=== PATIENT | male | born 1970 | race Caucasian/White ===

== ENCOUNTER 2018-11-14 12:27 | Inpatient (IN) | payer OTHER ==
[~2018-11-14] VITALS: Ht 175.3 cm; Wt 70.5 kg
--- NOTE | ~2018-11-14 | WRIGHTHP ---
[place], [place] PATIENT HISTORY AND PHYSICAL EXAM NAME: SHARONDA JOHN [facility] #: [id number] UNIT #: [id number] ROOM: 424 DOCTOR: EVA LUCIANO MD BIRTHDATE: [birth year] DOS: 11/14/2018 CHIEF COMPLAINT: Massive rectal bleeding. HISTORY OF PRESENTING ILLNESS: A 48-year-old patient, who is having massive rectal bleeding now 4-5 times a week. It was happening once every month for a year and now it has become more frequent. The patient had hernia repair 4-5 years ago. Now, he is feeling a gargling sound in his stomach and intestine area. Now with the first bowel movement of the day, he is having darker stools and has darker blood in his stools. He said that by the second time he would go, it is gone, but there are times where he just does not feel right. The patient denied any chest pain or shortness of breath. No nausea or vomiting or diarrhea. His baseline heart rate is 70-80, but today it was 102 per minute. His blood pressure was 120/72. The patient at this time was admitted to the hospital. CT scan of the abdomen and pelvis was ordered with contrast. Dr. Padilla was consulted. CMP, CBC with diff was ordered. PAST MEDICAL HISTORY: Significant for: 1. Diabetes. 2. Hypertension. PAST SURGICAL HISTORY: 1. Appendix removed 27 years ago. 2. Hernia surgery in 11/2015. FAMILY HISTORY: Father . Mother is living. One sister and one son. MEDICATIONS: He is not on any home medication at this point. SOCIAL HISTORY: The patient does smoke. He smokes about a pack and a half a day. He stopped smoking within 5 minutes. He smokes cigarette every day. No illicit drug use, no alcohol use. DRUG ALLERGIES: No known drug allergies. REVIEW OF SYSTEMS: A 10-point review of systems is negative, except for a GI bleed and as dictated in the history of present illness. The patient does feel tired. PHYSICAL EXAMINATION: VITAL SIGNS: Blood pressure is 120/72, heart rate 102, temperature 98.9, BMI 24.48, oxygen saturation 96%. GENERAL APPEARANCE: The patient is in no acute distress. He is well developed, well nourished. HEENT: Normocephalic, atraumatic. Eyes: Pupils equal, round, react to light. Extraocular movements are intact. Ear, nose, and throat: No discharge noted. NECK: No JVD, no lymphadenopathy, no thyromegaly. [place], [place] PATIENT HISTORY AND PHYSICAL EXAM NAME: SHARONDA JOHN UNIT #: [id number] ROOM: 424 DOCTOR: EVA LUCIANO MD BIRTHDATE: [birth year] CHEST: Clinically clear to auscultation bilaterally. HEART: S1, S2 regular in rate and no murmur, gallop or rub. ABDOMEN: Soft, nontender. The patient does have a lump in the left anterior chest, which has been there for the last 8 years and has shown no growth. Abdomen is soft, nontender. EXTREMITIES: No cyanosis, clubbing or edema. NEUROLOGIC: No focal deficit. Muscle strength 5/5 in all extremities. Sensory exam is intact. ASSESSMENT: At this time: 1. Tachycardia. 2. Rectal bleeding. 3. Tobacco abuse. 4. Extensive tattoos. 5. Lump in the chest (present for the last 8 years, was evaluated in the past and no surgical intervention was advised). 6. Status post appendectomy. TREATMENT RECOMMENDATIONS: At this time: 1. The patient admitted to the hospital. Dr. Padilla consulted. CT scan of the abdomen and pelvis. 2. CMP, CBC with diff. 3. EKG was done. 4. The patient also has chest pain at rest and chest pain on exertion. It may be related to his current condition, but if it persists, then the patient will cycle cardiac enzymes and the patient may be a candidate for stress test. We will follow the patient closely. EVA LUCIANO MD CM:HISPHYS:PATIENT HISTORY AND PHYSICAL EXAMINATION [id number] EVA LUCIANO MD 11/15/18 1016 interface
[~2018-11-14 12:27] MED LIST: ASPIR LOW81 MG PO; CYCLOBENZAPRINE10 MG PO; HYDROCODONE BIT1 T11 PO; LIPITOR10 MG PO; MIRALAX POWDER17 G1 PO; NORCO 10-325 T1 EACH PO; NORCO 5-325 TA1 EACH PO
[2018-11-14 12:45] VITALS: BP 119/80
--- NOTE | 2018-11-14 12:45 | NUR ---
A 48, admitted to , under the services of EVA Ruiz MD with a diagnosis of RECTAL BLEEDING. Chief complaint is RECTAL BLEEDING. Patient arrived via wheel chair from [place]. Monitor applied. Initial assessment completed. Vital signs taken and recorded. EVA RUIZ MD notified of admission to the unit. Orders received. See assessment for past medical history, medications and allergies. Patient and/or family oriented to unit. [facility] visitation policy reviewed. Clothing/patient valuable form completed. VACNE VILLEGAS
--- NOTE | 2018-11-14 13:25 | NUR ---
DR LUCIANO CALLED FOR ADMISSION ORDERS, NO ANSWER AT THIS TIME. MESSAGE LEFT.
--- NOTE | 2018-11-14 14:28 | NUR ---
DR LUCIANO CALLED- NO ANSWER.
--- NOTE | 2018-11-14 15:20 | NUR ---
DR MAGAÑA CALLED FOR NEW CONSULT- NO ANSWER.
[2018-11-14 15:54] LABS: BASO # 0.1 10*3/uL (0.0-0.1); BASO % 0.6 % (0.0-1.0); EOS # 0.1 10*3/uL (0.0-0.4); EOS % 0.8 % (1.0-4.0); HEMATOCRIT 46.1 % (42.0-52.0); HEMOGLOBIN 15.5 g/dl (14.0-18.0); LYMPH % 34.3 % (27.0-41.0); MEAN CELL VOLUME 91.3 fl (80.0-94.0); MEAN CORPUSCULAR HGB 30.7 pg (27.0-31.0); MEAN CORPUSCULAR HGB CONC 33.6 g/dl (33.0-37.0); MEAN PLATELET VOLUME 9.2 fl (9.6-12.3); MONO # 0.6 10*3/uL (0.1-1.0); MONO % 7.3 % (3.0-9.0); NEUT % 56.8 % (47.0-73.0); PLATELET COUNT AUTOMATED 223 10*3/uL (130-400); RED BLOOD COUNT 5.05 10*6/uL (4.50-5.90); RED CELL DISTRI WIDTH 12.7 % (0-14.5); WHITE BLOOD COUNT 8.8 10*3/uL (4.8-10.8)
[2018-11-14 16:00] VITALS: BP 123/73
[2018-11-14 16:28] LABS: BUN 12 mg/dl (7-24); CHLORIDE 106 mmol/L (98-107); SODIUM 139 mmol/L (136-145)
--- NOTE | 2018-11-14 16:47 | NUR ---
DR MAGAÑA CALLED WITH NEW CONSULT. NEW ORDERS RECEIVED TO PREP PATIENT FOR COLO IN AM.
[2018-11-14 20:00] VITALS: BP 128/90
--- NOTE | 2018-11-14 20:40 | NUR ---
PATIENT REQUESTING NICOTINE PATCH- DR GUERRA CALLED- NEW ORDER RECEIVED.
--- NOTE | 2018-11-14 23:30 | NUR ---
REPORT RECIEVED FROM СВЕТЛАНА WOODARD. PT IS ASLEEP IN BED AT THIS TIME WITH NO OBVIOUS SIGNS OF PAIN OR DISCOMFORT. RESPIRATIONS EASY AND NONLABORED. NSR ON TOLL COLLECTOR. PT AWARE HE IS NPO AT MIDNIGHT FOR COLONOSCOPY IN THE MORNING WITH . BED LOCKED AND IN LOWEST POSITION. CALL LIGHT IS WITHIN REACH. WILL CONTINUE TO MONITOR.
[2018-11-15] VITALS: BP 116/84
[2018-11-15 07:12] LABS: BASO # 0.1 10*3/uL (0.0-0.1); BASO % 0.9 % (0.0-1.0); EOS # 0.1 10*3/uL (0.0-0.4); EOS % 1.3 % (1.0-4.0); HEMATOCRIT 49.6 % (42.0-52.0); LYMPH # 2.7 10*3/uL (1.3-4.4); LYMPH % 31.4 % (27.0-41.0); MEAN CELL VOLUME 90.8 fl (80.0-94.0); MEAN CORPUSCULAR HGB 31.1 pg (27.0-31.0); MEAN CORPUSCULAR HGB CONC 34.3 g/dl (33.0-37.0); MEAN PLATELET VOLUME 9.2 fl (9.6-12.3); MONO # 0.7 10*3/uL (0.1-1.0); MONO % 8.3 % (3.0-9.0); PLATELET COUNT AUTOMATED 243 10*3/uL (130-400); RED BLOOD COUNT 5.46 10*6/uL (4.50-5.90); RED CELL DISTRI WIDTH 12.8 % (0-14.5); WHITE BLOOD COUNT 8.6 10*3/uL (4.8-10.8)
[2018-11-15 07:28] LABS: BUN 10 mg/dl (7-24); CHLORIDE 108 mmol/L (98-107); CREATININE 0.74 mg/dL (0.70-1.30); SODIUM 137 mmol/L (136-145)
[2018-11-15 08:41] VITALS: BP 110/72
--- NOTE | 2018-11-15 10:29 | NUR ---
PT CALLS THIS NURSE TO ROOM AND STATES THAT IF HE IS NOT TAKEN DOWN TO SURGERY BY 1100, THAT HE WILL LEAVE AMA. SURGERY NOTIFIED AND STATES THAT DR MAGAÑA WILL NOT BE IN UNTIL AT LEAST 1300. DR LUCIANO NOTIFIED AND STATES THAT IF PT LEAVES AMA, TELL PT TO FOLLOW UP WITH HIM OUTPATIENT ON SUNDAY OR SUNDAY IN ORDER TO SCHEDULE AN OUTPATIENT COLONOSCOPY WITH DR MAGAÑA. WILL NOTIFY PT.
--- NOTE | 2018-11-15 10:46 | NUR ---
PT LEAVES AMA AT THIS TIME.
[2019-02-12] MEDS ORDERED: OMEPRAZOLE20 M2 PO (12:53)
== END 2018-11-15 10:45 | disposition left against medical advice (07) | DRG 379 ==
LOC: 4E 12:27
PROVIDERS: ADMIT Internal Medicine
DX: K62.5 Hemorrhage of anus and rectum (principal); R00.0 Tachycardia, unspecified; Z53.21 Procedure and treatment not carried out due to patient leaving prior to being seen by health care provider; E87.8 Other disorders of electrolyte and fluid balance, not elsewhere classified; I10 Essential (primary) hypertension; E11.9 Type 2 diabetes mellitus without complications; F17.200 Nicotine dependence, unspecified, uncomplicated; L81.8 Other specified disorders of pigmentation; Z90.49 Acquired absence of other specified parts of digestive tract

== ENCOUNTER → 2019-02-12 | Day surgery (SDC) | payer OTHER ==
[~2019-02-12] VITALS: Ht 175.2 cm; Wt 72.6 kg
[~2019-02-12] MED LIST changes: +OMEPRAZOLE20 M2 PO
--- NOTE | ~2019-02-12 | O ---
[place], [place] OPERATIVE NOTE NAME: SHARONDA JOHN UNIT #: [id number] ROOM: DOCTOR: KIRILL MAGAÑA MD BIRTHDATE: [birth year] DOS: 02/12/2019 GASTROENDOSCOPIC REPORT INDICATIONS: The patient who has presented with multiple medical issues among which has been blood in the rectum, dyspepsia on Tums medication. ALLERGIES: No known medication. FAMILY HISTORY: Stomach CA in grandfather, grandmother and uncle. PAST SURGICAL HISTORY: Left inguinal hernia, tonsil. SOCIAL HISTORY: Smoker, nonalcohol consumer. PROCEDURE: Today's procedure part of investigation is colonoscopy and panendoscopy. PREMEDICATION: Propofol. SCOPE: Olympus forward-viewing gastroscope Q10 video. REPORT: After putting the patient in left lateral position and application of lubricant to the scope, the scope was introduced. Thereafter, under direct visualization, advanced throughout the length of esophagus without difficulty. Esophagus, cervical, thoracic distal carefully examined. Gastric pouch was entered. Evidence of gastritis was noticed. Antral biopsy was obtained. Duodenal bulb, second and third part within normal limit. The patient extubated after antral biopsy. The patient tolerated the procedure well. IMPRESSION: Gastritis, gastric biopsy, awaiting H. pylori results. PLAN AND DISCUSSION: Dietary modification. We are going to organize omeprazole prescription 1 every day 20 mg and antireflux follow up as outpatient. Further discussion, we are going to proceed with colonoscopy. GASTROENDOSCOPIC REPORT INDICATION: The patient has presented with rectal bleed, undergoing investigation. PROCEDURE: Today's procedure part of investigation is colonoscopy plus 4 snare polypectomy. PREMEDICATION: Propofol. SCOPE: Olympus forward-viewing colonoscope 10L video. REPORT: After putting the patient in left lateral position and application of [place], [place] OPERATIVE NOTE NAME: SHARONDA JOHN UNIT #: [id number] ROOM: DOCTOR: KIRILL MAGAÑA MD BIRTHDATE: [birth year] lubricant to the scope, the scope was introduced, advanced throughout the length of rectum without difficulty to the base of cecum. Three polypoid lesions from splenic flexure with snare was polypectomized. One larger polyp from sigmoid colon was polypectomized. Samples recovered. Diverticulosis was identified. Air was suctioned out. The patient was extubated, tolerated the procedure well. IMPRESSION: Sigmoid colon polyp, status post snare polypectomy along with 3 splenic flexure polypoid lesions status post snare polypectomy, diverticulosis. PLAN: High fiber diet. ACTIVITY: Ad raheem. FOLLOWUP: Followup routinely with you in office. 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 This we will address as outpatient. Thank you very much indeed for your kind referral. KIRILL MAGAÑA MD CM:OPRECORD:OPERATIVE NOTE [id number] EVA MAGAÑA MD 02/12/19 1335 interface
--- NOTE | ~2019-02-12 | POSTOPNOTE ---
[place], [place] POSTOPERATIVE PROGRESS NOTE NAME: SHARONDA JOHN UNIT #: [id number] ROOM: DOCTOR: KIRILL MAGAÑA MD BIRTHDATE: [birth year] DATE: 02/15/19 GI NOTE PREOPERATIVE DIAGNOSIS: BLOOD IN RECTUM, DYSPEPSIA ON TUMS MEDICATION POSTOP UPPER GI PROC/FINDINGS: GASTRITIS, GASTRIC BIOPSY, AWAITING H. PYLORI RESULTS UPPER GI PROCEDURE/SURGERY: EGD WITH BIOPSY UPPER GI FINDINGS: GASTRITIS, GASTRIC BIOPSY, AWAITING H. PYLORI RESULTS POSTOP LOWER GI PROC/FINDINGS: LOWER GI PROCEDURE/SURGERY: COLONOSCOPY WITH SNARE POLYPECTOMY LOWER GI FINDINGS: SIGMOID COLON POLYP, 3 SPLENIC FLEXURE POLYPOID LESIONS, DIVERTICULOSIS KIRILL MAGAÑA MD CM:POSTOPN [id number] KIRILL MAGAÑA MD 02/19/19 1120 [email or web address] [email or web address]
[2019-02-12 11:45] VITALS: BP 119/88
[2019-02-12 12:36] VITALS: BP 103/75
[2019-02-12 12:51] VITALS: BP 107/76
[2019-02-12 13:06] VITALS: BP 115/78
== END | disposition home or self-care (01) ==
LOC: SDC 02-06 10:15
DX: D12.3 Benign neoplasm of transverse colon (principal); D12.5 Benign neoplasm of sigmoid colon; K29.50 Unspecified chronic gastritis without bleeding; K57.30 Diverticulosis of large intestine without perforation or abscess without bleeding; F17.210 Nicotine dependence, cigarettes, uncomplicated; Z79.899 Other long term (current) drug therapy; Z98.890 Other specified postprocedural states; Z80.0 Family history of malignant neoplasm of digestive organs

== ENCOUNTER → 2019-04-03 | Outpatient (CLI) | payer OTHER | END | disposition home or self-care (01) | LOC: MRI 15:00 | DX: M48.061 Spinal stenosis, lumbar region without neurogenic claudication (principal); M51.26 Other intervertebral disc displacement, lumbar region; M51.36 Other intervertebral disc degeneration, lumbar region; M25.78 Osteophyte, vertebrae; M12.88 Other specific arthropathies, not elsewhere classified, other specified site ==

== ENCOUNTER → 2019-05-07 | Outpatient (CLI) | payer OTHER | END | disposition home or self-care (01) | LOC: US 02:43 | DX: N30.00 Acute cystitis without hematuria (principal) ==

== ENCOUNTER → 2020-03-23 | Outpatient (CLI) | payer OTHER | END | disposition home or self-care (01) | LOC: RAD 11:08 | PROVIDERS: ATTEND Internal Medicine | DX: M48.061 Spinal stenosis, lumbar region without neurogenic claudication (principal); M54.16 Radiculopathy, lumbar region ==

== ENCOUNTER 2021-05-06 11:03 | Emergency (ER) | payer OTHER ==
[~2021-05-06] VITALS: Wt 79.4 kg
[2021-05-06 11:30] LABS: BASO # 0.1 10*3/uL (0.0-0.1); BASO % 0.6 % (0.0-1.0); EOS % 0.1 % (1.0-4.0); HEMATOCRIT 47.8 % (42.0-52.0); LYMPH # 2.7 10*3/uL (1.3-4.4); LYMPH % 29.9 % (27.0-41.0); MEAN CELL VOLUME 92.5 fl (80.0-94.0); MEAN CORPUSCULAR HGB 31.3 pg (27.0-31.0); MEAN CORPUSCULAR HGB CONC 33.9 g/dl (33.0-37.0); MEAN PLATELET VOLUME 9.3 fl (9.6-12.3); MONO # 0.4 10*3/uL (0.1-1.0); MONO % 4.1 % (3.0-9.0); NEUT # 5.8 10*3/uL (2.3-7.9); NEUT % 64.7 % (47.0-73.0); PLATELET COUNT AUTOMATED 237 10*3/uL (130-400); RED BLOOD COUNT 5.17 10*6/uL (4.50-5.90); RED CELL DISTRI WIDTH 13.1 % (0-14.5)
[2021-05-06 11:42] LABS: ACT PARTIAL THROMBO TIME 29.2 SECONDS (20.0-32.1); INTERNATIONAL NORM RATIO 0.9 (2.0-3.5)
[2021-05-06 11:48] LABS: ALBUMIN 3.8 gm/dl (3.1-4.5); ALKALINE PHOSPHATASE 114 U/L (45-117); BUN 19 mg/dl (7-24); CHLORIDE 107 mmol/L (98-107); CREATININE 0.79 mg/dL (0.70-1.30); SGOT/AST 28 IU/L (3-35); SGPT/ALT 65 U/L (12-78); SODIUM 136 mmol/L (136-145); TOTAL PROTEIN 7.4 gm/dL (6.4-8.2); TROPONIN I < 0.015 ng/ml (<0.045)
[2021-05-06] MEDS ORDERED: PREDNISONE50 MG PO (13:44)
[2021-05-06] MEDS ORDERED: VENT7GM INH (13:52)
== END 2021-05-06 14:23 | disposition home or self-care (01) ==
LOC: ED 11:03
PROVIDERS: Family Medicine
DX: J40 Bronchitis, not specified as acute or chronic (principal); Z20.822 Contact with and (suspected) exposure to COVID-19; Z79.899 Other long term (current) drug therapy; Z90.49 Acquired absence of other specified parts of digestive tract; Z98.890 Other specified postprocedural states

== ENCOUNTER 2023-10-25 13:02 | Inpatient (IN) | payer OTHER ==
[~2023-10-25] VITALS: Ht 175.2 cm; Wt 93.0 kg
[~2023-10-25 13:02] MED LIST changes: -OMEPRAZOLE20 M2 PO; +OMEPRAZOLE40 MG PO; +PREDNISONE50 MG PO; +VENT7GM INH
[2023-10-25 13:08] VITALS: BP 156/104
[2023-10-25 13:30] LABS: BASO # 0.1 10*3/uL (0.0-0.1); BASO % 0.8 % (0.0-1.0); EOS # 0.1 10*3/uL (0.0-0.4); EOS % 0.9 % (1.0-4.0); HEMATOCRIT 52.8 % (42.0-52.0); LYMPH # 2.4 10*3/uL (1.3-4.4); LYMPH % 27.9 % (27.0-41.0); MEAN CORPUSCULAR HGB 31.2 pg (27.0-31.0); MEAN CORPUSCULAR HGB CONC 33.5 g/dl (33.0-37.0); MEAN PLATELET VOLUME 9.4 fl (9.6-12.3); MONO # 0.4 10*3/uL (0.1-1.0); NEUT # 5.5 10*3/uL (2.3-7.9); PLATELET COUNT AUTOMATED 230 10*3/uL (130-400); RED BLOOD COUNT 5.68 10*6/uL (4.50-5.90); RED CELL DISTRI WIDTH 13.2 % (0-14.5); WHITE BLOOD COUNT 8.5 10*3/uL (4.8-10.8)
[2023-10-25 13:45] LABS: ACT PARTIAL THROMBO TIME 31.3 SECONDS (20.0-32.1)
[2023-10-25] MEDS ORDERED: IOHEXOL 300 MG/ML 100 ML VIAL IV ONE (13:50)
[2023-10-25 13:59] LABS: ALKALINE PHOSPHATASE 109 U/L (46-116); BUN 8 mg/dl (9-23); CHLORIDE 104 mmol/L (98-107); LIPASE 36 U/L (12-53); POTASSIUM 4.1 mmol/L (3.4-5.1); SGPT/ALT 35 U/L (5-49); TOTAL PROTEIN 7.6 gm/dL (6.0-8.0)
[2023-10-25 16:00] VITALS: BP 152/88
[2023-10-25] MEDS ORDERED: CYMBALTA60 MG PO (16:37)
[2023-10-25] MEDS ORDERED: NEURONTIN800 MG PO (16:38)
[2023-10-25] MEDS ORDERED: TRAZODONE50 MG PO (16:38)
[2023-10-25] MEDS ORDERED: CYCLOBENZAPRINE10 MG PO (16:38)
[2023-10-25] MEDS ORDERED: Albuterol Sulfate 2.5 MG/3 ML VIAL NEB SCH (17:05)
[2023-10-25 20:00] VITALS: BP 153/87
[2023-10-25] MEDS ORDERED: GABAPENTIN 800 MG TAB PO SCH (22:00)
[2023-10-25] MEDS ORDERED: Cyclobenzaprine Hydrochlorid 10 MG TAB PO SCH (22:00)
[2023-10-26] VITALS: BP 130/85
[2023-10-26] MEDS ORDERED: OMEPRAZOLE 20 MG CAP PO SCH (06:00)
[2023-10-26 08:00] VITALS: BP 163/93
[2023-10-26] MEDS ORDERED: Technetium Tc 99M Tetrofosmi 0.23 MG KIT IJ SCH (09:15)
[2023-10-26] MEDS ORDERED: Duloxetine Hydrochloride 60 MG CAP PO SCH (10:00)
[2023-10-26 12:00] VITALS: BP 109/81
[2023-10-26 16:00] VITALS: BP 154/99
[2023-10-26] MEDS ORDERED: METOPROLOL SUCCINATE XR 25 MG TAB PO SCH (16:25)
[2023-10-26] MEDS ORDERED: NITROGLYCERIN 0.4 MG BOT SL PRN (16:25)
[2023-10-26] MEDS ORDERED: TOPROL XL25 MG PO (16:59)
[2023-10-26] MEDS ORDERED: NITROSTAT0.4 MG PO (17:00)
== END 2023-10-26 18:48 | disposition home or self-care (01) | DRG 243 ==
LOC: ED 13:02 → EDHOLD 15:14 → 5E 15:14
PROVIDERS: Nurse Practitioner Family; ADMIT Internal Medicine; ATTEND Internal Medicine
PROC: 4A12XM4 Monitoring of Cardiac Stress, External Approach (ICD-10-PCS; principal; 2023-10-26)
PROC: 3E073KZ Introduction of Other Diagnostic Substance into Coronary Artery, Percutaneous Approach (ICD-10-PCS; 2023-10-26)
DX: K21.9 Gastro-esophageal reflux disease without esophagitis (principal); I20.1 Angina pectoris with documented spasm; K62.5 Hemorrhage of anus and rectum; D17.1 Benign lipomatous neoplasm of skin and subcutaneous tissue of trunk; M54.50 Low back pain, unspecified; K76.0 Fatty (change of) liver, not elsewhere classified; J44.9 Chronic obstructive pulmonary disease, unspecified; G89.29 Other chronic pain; Z79.899 Other long term (current) drug therapy; Z79.01 Long term (current) use of anticoagulants; Z79.2 Long term (current) use of antibiotics; Z83.3 Family history of diabetes mellitus; Z82.3 Family history of stroke; Z82.49 Family history of ischemic heart disease and other diseases of the circulatory system

== ENCOUNTER 2024-06-19 09:17 | Emergency (ER) | payer OTHER ==
[~2024-06-19] VITALS: Ht 172.7 cm; Wt 93.0 kg
[~2024-06-19 09:17] MED LIST changes: +CYMBALTA60 MG PO; +NEURONTIN800 MG PO; +NITROSTAT0.4 MG PO; +TOPROL XL25 MG PO; +TRAZODONE50 MG PO
[2024-06-19] MEDS ORDERED: AMOX-CLAV 875-1 EACH PO (09:37)
== END 2024-06-19 09:43 | disposition home or self-care (01) ==
LOC: ED 09:17
DX: K04.7 Periapical abscess without sinus (principal); J44.9 Chronic obstructive pulmonary disease, unspecified; F17.200 Nicotine dependence, unspecified, uncomplicated; Z90.49 Acquired absence of other specified parts of digestive tract; Z98.890 Other specified postprocedural states